=== PATIENT | male | born 1960 | race Caucasian/White ===

== ENCOUNTER 2022-11-19 06:06 | Day surgery (SDC) | payer OTHER, SELFPAY ==
[2022-11-03 13:54] VITALS: BMI 31.9
--- NOTE | 2022-11-18 11:52 | WPDANESEPPF ---
Anes - Initial Pre Proc Eval Procedure: Operation Date: 11/19/22 07:30 Proposed Procedures p Screening Colonoscopy - Roderick Pereira MD Date/Time: 11/18/22 11:52 Surgeon: Roderick Pereira MD Pre Op Diagnosis: Neoplasm Screening Patient Data Age: 62 Gender: M Height: 1.8 m Weight: 104 kg Allergies Allergy/AdvReac Type Severity Reaction Status Date / Time No Known Allergies Allergy Verified 11/19/22 06:29 Home Medications Medication Instructions Recorded Confirmed Type apixaban 5 mg tablet (Eliquis) 5 mg PO DAILY 11/03/22 11/19/22 History meloxicam 15 mg tablet 15 mg PO DAILY 11/03/22 11/19/22 History metformin 1,000 mg tablet 1,000 mg PO DAILY 11/03/22 11/19/22 History rosuvastatin 5 mg tablet 5 mg PO DAILY 11/03/22 11/19/22 History Patient hx anesthesia problems: none Family hx anesthesia problems: none Results Review: All pre-operative results and documents have been reviewed as part of the pre-operative evaluation. [facility] Past Medical History Medical History Diabetes DVT (deep venous thrombosis) Hyperlipidemia Obesity GLENNY (obstructive sleep apnea) Social History Social History Smoking status: Never smoker Alcohol intake: current Substance use: never Substance use type: does not use Living arrangements: with family Spiritual care concerns: No Anes - Eval Final PreProcedure Day of Procedure 11/18/22 11:52 Patient weight: obese Heart: regular rate and rhythm Lungs: clear to auscultation and normal air movement Airway: Mallampati scale class II Neurological: alert and oriented Last oral intake: >/= 8 hours ASA classification: III Emergent: no Anesthetic plan: proceed Anesthesia type and monitoring: general GIVS Results Review: All pre-operative results and documents have been reviewed as part of the pre-operative evaluation. Informed Consent: The patient's anesthetic plan and its attendant risks and benefits were discussed with the patient/family/POA. Questions were solicited and answers provided to the satisfaction of the patient/family/POA.
--- NOTE | 2022-11-18 12:13 | PM.HPGS ---
History of Present Illness History of Present Illness Consent: Risks, benefits, and alternatives have been discussed and questions answered. Patient agrees to proceed with procedure. Chief complaint: Neoplasm Screening Narrative: Jenaro Branch is a 62 year old male Was referred for colon cancer screening. Review of Systems Review of Systems: All systems reviewed & are unremarkable except as noted in HPI and below PMFSH Past Medical History Medical History Diabetes DVT (deep venous thrombosis) Hyperlipidemia Obesity GLENNY (obstructive sleep apnea) Social History Social History Smoking status: Never smoker Alcohol intake: current Substance use: never Substance use type: does not use Living arrangements: with family Spiritual care concerns: No Meds Home Medications and Allergies Home Medications Medication Instructions Recorded Confirmed Type apixaban 5 mg tablet (Eliquis) 5 mg PO DAILY 11/03/22 11/19/22 History meloxicam 15 mg tablet 15 mg PO DAILY 11/03/22 11/19/22 History metformin 1,000 mg tablet 1,000 mg PO DAILY 11/03/22 11/19/22 History rosuvastatin 5 mg tablet 5 mg PO DAILY 11/03/22 11/19/22 History Allergies Allergy/AdvReac Type Severity Reaction Status Date / Time No Known Allergies Allergy Verified 11/19/22 06:29 Exam Const: General: alert Orientation/consciousness: patient oriented x3 Resp: Auscultation: clear to auscultation bilaterally Cardio: Rhythm: regular rhythm GI: GI Palp: Yes Soft to palpation and No Tenderness to palpation present (GI) Neuro: General: patient oriented x3 Assessment and Plan Assessment and plan (1) Colon cancer screening: Code(s): Z12.11 - Encounter for screening for malignant neoplasm of colon Status: Acute Assessment and Plan: Colonoscopy with possible biopsy or polypectomy or cautery or injection of substances.
[2022-11-19 06:30] VITALS: BP 135/91; PULSE 75; RESP 18; TEMP 36.6; O2SAT 98
[2022-11-19] MEDS: LACTATED RINGERS 1,000 ML 150 ML IV CONT (06:43)
[2022-11-19 06:45] LABS: Glucose Point of Care 192 mg/dl (65-105)
[2022-11-19 07:50] VITALS: BP 122/62; PULSE 56; RESP 16; O2SAT 96
[2022-11-19 08:00] VITALS: BP 117/66; PULSE 54; RESP 16; O2SAT 96
[2022-11-19 08:10] VITALS: BP 109/96; PULSE 58; RESP 16; O2SAT 100
--- NOTE | 2022-12-01 08:28 | WPDANESPN ---
Anes - Prog Note Post-Op Date/Time: 12/01/22 08:28 Cardiovascular status: normal Respiratory status: normal Airway patency: baseline Mental status: baseline Post-Op hydration status: normal Vital Signs: Last Vital Signs Temp 36.6 C 11/19/22 06:30 Pulse 58 L 11/19/22 08:10 Resp 16 11/19/22 08:10 BP 109/96 H 11/19/22 08:10 Pulse Ox 100 11/19/22 08:10 O2 Del Method Room Air 11/19/22 08:10 Pain Score (VAS): 0 Post-procedural complaints: none Patient Feedback: Patient satisfied with anesthetic care.
== END 2022-11-19 08:30 | disposition home or self-care (01) ==
PROVIDERS: PCP Internal Medicine; Visit Provider Internal Medicine Gastroenterology
PROC: 0DJD8ZZ Inspection of Lower Intestinal Tract, Via Natural or Artificial Opening Endoscopic (ICD-10-PCS; CPT 45378; principal; 2022-11-19 07:30)
DX: Z12.11 Encounter for screening for malignant neoplasm of colon (principal)
CPT/HCPCS: 45378